=== PATIENT | male | born 1985 | race Caucasian/White ===

== ENCOUNTER 2023-05-17 16:05 | Emergency (ER) | payer MEDICAID, SELFPAY ==
--- NOTE | ~2023-05-17 | XR_ITS ---
EXAMINATION: XR TIBIA AND FIBULA, RIGHT CLINICAL INFORMATION: Rule out osteomyelitis cellulitis COMPARISON: None available. TECHNIQUE: AP and lateral views of the right tibia and fibula were obtained. FINDINGS: The bones and soft tissues are normal. No fracture. No osseous lesions. XR/XR tibia fibula RT 2V IMPRESSION: Normal right tibia and fibula.
--- NOTE | ~2023-05-17 | US_ITS ---
EXAMINATION: ULTRASOUND RIGHT CALF CLINICAL INFORMATION: Skin infection with question of calf abscess COMPARISON: None available. TECHNIQUE: High-frequency linear ultrasound transducer was used to examine the area of clinical concern. FINDINGS: There is soft tissue swelling with subcutaneous fat appearing slightly hyperechoic but not hypervascular. No fluid collection or abscess is seen. The visualized small saphenous vein appears normal. US/US extremity nonvascular IMPRESSION: Soft tissue swelling without evidence of abscess.
[2023-05-17 16:51] VITALS: BP 131/93; PULSE 98; RESP 16; TEMP 37.2; O2SAT 99; BMI 23.7
--- NOTE | 2023-05-17 16:51 | ED.GENADULT ---
[facility] - General Adult General Chief complaint: Wound/Laceration Stated complaint: right leg infection Time Seen by Provider: 05/17/23 17:27 Source: patient, RN notes reviewed and old records reviewed Mode of arrival: ambulatory History of Present Illness [facility] narrative: 37-year-old male with no significant past medical history presenting to the ED complaining of painful wound to right calf s/p rubbing against nail that was sticking out of cabinet 1 week ago. Reports purulent drainage from area s/p squeezing himself at home. Tetanus up-to-date. Denies fever, chills, numbness, tingling, weakness, injury to other area. Onset (ago): week(s) Related Data Previous Rx's Medication Instructions Recorded cephalexin 500 mg capsule 500 mg PO QID 7 days #28 caps 05/17/23 doxycycline hyclate 100 mg tablet 100 mg PO BID 7 days #14 tabs 05/17/23 Allergies Allergy/AdvReac Type Severity Reaction Status Date / Time No Known Allergies Allergy Verified 05/17/23 16:51 Review of Systems Review of Systems: Constitutional: No Fever, No Chills ENT/Mouth: No Ear Pain, No Nasal Congestion, No sore throat, No Rhinorrhea, No Swallowing Difficulty Cardiovascular: No Chest Pain, No SOB Respiratory: No Cough Gastrointestinal: No Nausea, No Vomiting, No Abdominal pain Musculoskeletal: No joint pain, No Myalgias, No Joint Swelling Skin: +Skin Lesions, No rash Neuro: No Weakness, No Numbness, No Paresthesias Yes all other systems are reviewed and are negative Constitutional: Constitutional: Reports as per [facility] Past Medical History Attestation statement: The following information was validated with the patient. Source: old records reviewed Social History Social History Advance Directives: No Advance Directives Information Provided: No Physical Exam ED Vital Signs: Vital Signs - 24 hr 05/17/23 16:51 Temperature 98.9 F Pulse Rate 98 Respiratory Rate 16 Blood Pressure 131/93 H Pulse Oximetry 99 Oxygen Delivery Method Room Air BMI result Body Mass Index 23.7 Const General: cooperative, healthy appearing and no acute distress Orientation/consciousness: patient oriented x3 Limitations: no limitations HENMT Head: Yes normal to inspection and Yes atraumatic Ears: hearing grossly normal bilaterally General nose exam: Normal external nose present Face and sinus: Yes normal facial exam Eyes General: appearance normal, both eyes and all related structures EOM: EOMs intact bilaterally Neck Neck: Yes normal visual inspection and Yes no meningeal signs Resp Effort & Inspection: normal respiratory effort and no respiratory distress Cardio Rate: regular rate Peripheral pulses: Peripheral pulses 2+ throughout Skin Other: Please refer to image above. Open wound noted to right posterior calf with surrounding erythema. Slightly indurated, no fluctuance, no active or expressible drainage. No streaking. No warmth. Neurovascularly intact distally. Rashes: no rashes Neuro General: patient oriented x3, tone normal and no meningeal signs Cranial nerves: Yes CN's II-XII intact bilaterally Gait exam (Neuro): Normal gait present Extrem General: Yes normal to inspection Course Course Course Narrative: RME:?37 yo male w/ no pmhx presents to the ED today with complaint of right leg infection s/p cut to right calf 1 wk ago. Reports cutting his right calf on a nail that was sticking out of a kitchen cabinet. Since this time the area has been enlarging and draining pus. Denies fevers, chills. PE:1.5 in x 1.5 in circular wound noted to posterior right calf. TTP, warm, indurated. no palpable fluctuance. 2+ DP/PT pulses. Ambulating w/ steady gait. Plan: labs, xray, US, tetanus Full HPI, ROS and PE to be performed by the primary ED provider. -mild leukocytosis of 11.6 -labs otherwise unremarkable XR tibia fibula RT 2V IMPRESSION: Normal right tibia and fibula. US extremity nonvascular IMPRESSION: Soft tissue swelling without evidence of abscess. Results discussed with patient including worrisome signs and symptoms and strict return precautions, and when to return to the emergency department. They verbalized understanding and feel safe for discharge at this time. Medical Decision Making Medical Decision Making [facility] Narrative: 37-year-old male with no significant past medical history presenting to the ED complaining of painful wound to right calf s/p rubbing against nail that was sticking out of cabinet 1 week ago. On exam vital signs stable, NAD, nontoxic appearing. Concern for cellulitis/abscess. Lower suspicion for osteomyelitis, DVT, deeper soft tissue infection. No evidence of compartment syndrome or necrotizing fasciitis Plan: Labs, ultrasound, x-ray ordered in triage Please refer to course for remaining clinical decision making, interpretation of labs/imaging results, and discussions with consultants and/or family members. Differential Diagnosis Differential Diagnoses: The differential diagnosis associated with the presentation includes As above Admission/Observation Consideration of admission/observation: Escalation of care including admission/observation considered Lab Data MDM Lab Attestation statement: I reviewed the patient's lab results. 05/17/23 17:02 05/17/23 17:02 Labs: Lab Results 05/17/23 Range/Units 17:02 WBC 11.6 H (4.8-10.8) X10*3/uL RBC 4.79 (4.60-5.80) X10*6/uL Hgb 14.1 (14.0-18.0) g/dl Hct 42.3 (42.0-52.0) % MCV 88.3 (80.0-98.0) fL MCH 29.4 (27.0-33.0) pg MCHC 33.3 (31.0-36.0) g/dl RDW 13.2 (11.0-16.0) % Plt Count 298 (160-400) X10*3/uL MPV 10.0 (9.4-12.4) fL Immature Gran % (Auto) 0.3 (0.0-0.4) % Neut % (Auto) 72.2 (45-73) % Lymph % (Auto) 18.3 L (20-40) % Luna % (Auto) 8.0 (2-11) % Eos % (Auto) 0.9 (0-4) % Baso % (Auto) 0.3 (0-2) % Lymph # (Auto) 2.1 (1.2-4.9) X10*3/uL Luna # (Auto) 0.9 (0.1-1.2) X10*3/uL Eos # (Auto) 0.1 (0.0-0.4) X10*3/uL Baso # (Auto) 0.0 (0.0-0.2) X10*3/uL Abs Immat Gran (auto) 0.03 (0.00-0.03) X10*3/uL Absolute Neuts (auto) 8.4 H (2.0-8.3) x10*3/uL Absolute Nucleated RBC 0.000 (0.0-0.012) X10*3/uL Nucleated RBC % (auto) 0.0 (0.0-0.2) /100WBC PT 10.6 L (11.1-13.3) SEC INR 0.9 (0.9-1.1) Sodium 142 (135-145) mmol/L Potassium 3.9 (3.3-5.1) mmol/L Chloride 103 (96-108) mmol/L Carbon Dioxide 30 H (22-29) mmol/L Anion Gap 13 (12-20) BUN 14 (9-16) mg/dL Creatinine 1.10 (0.5-1.4) mg/dL Estim Creat Clear Calc 93.0 Estimated GFR > 60 Random Glucose 93 (60-115) mg/dL Calcium 10.1 (8.4-10.2) mg/dL Independent Interpretation I performed an independent interpretation of an: Plain X-Ray and Ultrasound Radiology Impression Discussion of test interpretation with radiology: I have reviewed the radiologist's reading. External Record Review External record reviewed: Inpatient record, Office record, Outpatient record, Prior outpatient labs, Prior outpatient radiology, Primary care record and Outside ED record Tests considered The following testing was considered but not selected: As above Prescription Management I considered prescription management with: Pain Medication and Antibiotic Discharge Plan Discharge Clinical Impression: Cellulitis Patient Disposition: Home, Self-Care Instructions: Cellulitis (DC), Warm Compress or Soak (ED) Additional Instructions: Your blood work and imaging studies were reassuring You have an infection. Keflex and doxycycline or antibiotics please take as prescribed Apply warm compresses If area worsens/spreads you have streaking, persistent drainage, fever or unremitting pain return to the emergency department Please follow-up with your doctor Prescriptions: New cephalexin 500 mg capsule 500 mg PO QID 7 Days Qty: 28 0RF doxycycline hyclate 100 mg tablet 100 mg PO BID 7 Days Qty: 14 0RF Referrals: Physician,None [Primary Care Provider] - 3 days Interventions: ED Discharge Assessment Last Done: 05/17/23 18:45 Discharge Date/Time: 05/17/23 18:45
[2023-05-17 17:06] LABS: MANUAL DIFF FLAG NO
[2023-05-17 17:07] LABS: Basophils Percent Auto 0.3 % (0-2); Eosinophils Absolute Auto 0.1 X10*3/uL (0.0-0.4); Eosinophils Percent Auto 0.9 % (0-4); Hematocrit 42.3 % (42.0-52.0); Hemoglobin 14.1 g/dl (14.0-18.0); Imm Gran Abs Auto 0.03 X10*3/uL (0.00-0.03); Imm Gran Pct Auto 0.3 % (0.0-0.4); Lymphocytes Absolute Auto 2.1 X10*3/uL (1.2-4.9); Lymphocytes Percent Auto 18.3 % (20-40); Mean Corpuscular HGB Conc 33.3 g/dl (31.0-36.0); Mean Corpuscular Hemoglobin 29.4 pg (27.0-33.0); Mean Corpuscular Volume 88.3 fL (80.0-98.0); Monocytes Absolute Auto 0.9 X10*3/uL (0.1-1.2); Neutrophils Absolute Auto 8.4 x10*3/uL (2.0-8.3); Neutrophils Percent Auto 72.2 % (45-73); Platelet Count 298 X10*3/uL (160-400); Red Blood Count 4.79 X10*6/uL (4.60-5.80); Red Cell Distribution Width 13.2 % (11.0-16.0); White Blood Count 11.6 X10*3/uL (4.8-10.8)
[2023-05-17 17:13] LABS: INTERNATIONAL NORM RATIO 0.9 (0.9-1.1); Prothrombin Time 10.6 SEC (11.1-13.3)
[2023-05-17 17:23] LABS: Anion Gap 13 (12-20); Blood Urea Nitrogen 14 mg/dL (9-16); Calcium 10.1 mg/dL (8.4-10.2); Carbon Dioxide 30 mmol/L (22-29); Chloride 103 mmol/L (96-108); Estimated Glomerular Filt Rate > 60; Glucose Random 93 mg/dL (60-115); Potassium 3.9 mmol/L (3.3-5.1); Sodium 142 mmol/L (135-145)
== END 2023-05-17 18:45 | disposition home or self-care (01) ==
PROVIDERS: Physician Assistant Medical; Emergency Provider Emergency Medicine Emergency Medical Services
DX: L03.115 Cellulitis of right lower limb (principal); M79.661 Pain in right lower leg
CPT/HCPCS: 36415; 73590; 76882; 80048; 85025; 85610; 99282; 99284